=== PATIENT | male | born 1990 | race Caucasian/White ===

== ENCOUNTER 2020-04-26 11:57 | Emergency (ER) | payer MEDICAID ==
[~2020-04-26] VITALS: Ht 170.2 cm; Wt 54.4 kg
[2020-04-26 12:17] VITALS: BP 149/88
[2020-04-26] MEDS ORDERED: FLUORESCEIN SOD 1 MG TEST STRIP LEFTEYE ONE (13:00)
[2020-04-26] MEDS ORDERED: TETRACAINE HCL 0.5% OPTH(EYE) SOLN 4ML LEFTEYE ONE (13:00)
== END 2020-04-26 13:28 | disposition home or self-care (01) ==
LOC: ER 11:57
DX: H10.32 Unspecified acute conjunctivitis, left eye (principal)

== ENCOUNTER 2022-03-31 10:59 | Emergency (ER) | payer MEDICAID ==
[~2022-03-31] VITALS: Ht 170.2 cm; Wt 59.1 kg
[2022-03-31 12:16] VITALS: BP 118/60
[2022-03-31] MEDS ORDERED: HYDR50CA PO (12:37)
== END 2022-03-31 12:47 | disposition home or self-care (01) ==
LOC: EDUNIT# 10:59 → ER 10:59 → EDBD 10:59 → ER 12:47
DX: M25.512 Pain in left shoulder (principal); M62.838 Other muscle spasm; F41.1 Generalized anxiety disorder; X58.XXXA Exposure to other specified factors, initial encounter; Y93.89 Activity, other specified; Y92.89 Other specified places as the place of occurrence of the external cause; Y99.8 Other external cause status

== ENCOUNTER 2022-05-02 11:27 | Emergency (ER) | payer MEDICAID ==
[~2022-05-02] VITALS: Ht 170.2 cm; Wt 62.4 kg
[~2022-05-02 11:27] MED LIST: HYDR50CA PO
[2022-05-02 14:04] LABS: Basophils # (auto) 0.1 10 ^3/uL (0-0.2); Basophils % (auto) 0.8 % (0.0-2.0); Eosinophils # (auto) 0.1 10 ^3/uL (0-0.8); Eosinophils % (auto) 1.6 % (0.0-7.0); Hemoglobin 15.8 g/dL (13.5-17.5); Lymphocytes # (auto) 1.7 10 ^3/uL (0.4-5.4); Lymphocytes % (auto) 26.8 % (10.0-50.0); Mean Corpuscular Hemoglobin 29.8 pg (28.0-32.0); Mean Corpuscular Volume 90.2 fL (80.0-100.0); Monocytes # (auto) 0.5 10 ^3/uL (0-1.3); Neutrophils # (auto) 4.1 10 ^3/uL (1.6-8.6); Neutrophils % (auto) 63.8 % (37.0-80.0); Nucleated Red Blood Cells % 0.1 %; Red Blood Cells 5.33 10^6/uL (4.5-5.90); White Blood Cell 6.5 10^3/uL (4.4-10.8)
[2022-05-02 14:33] LABS: Albumin 4.5 g/dL (3.4-5.0); BUN/Creatinine Ratio 12.7; Bilirubin, Total 0.8 mg/dL (0.2-1.0); Calcium 9.6 mg/dL (8.5-10.1); Potassium 4.3 mmol/L (3.5-5.1); Total Protein 7.3 g/dL (6.4-8.2)
[2022-05-02] MEDS ORDERED: OMEP-434 PO (15:42)
[2022-05-02] MEDS ORDERED: ONDANSETRON ODT 4 MG TAB PO ONE (15:45)
[2022-05-02] MEDS ORDERED: LIDOCAINE VISCOUS 2% 15ML UD PO ONE (15:45)
[2022-05-02] MEDS ORDERED: ALUM & MAG HYDROX-SIMETH LIQ(MAALOX) 30 ML PO ONE (15:45)
[2022-05-02] MEDS ORDERED: FAMOTIDINE 20 MG TAB PO ONE (15:45)
[2022-05-02 18:23] VITALS: BP 135/82
== END 2022-05-02 18:22 | disposition home or self-care (01) ==
LOC: ER 11:27
DX: K21.9 Gastro-esophageal reflux disease without esophagitis (principal)
CPT/HCPCS: 36415; 80053; 83690; 85025; 99284; Q0162

== ENCOUNTER 2022-05-22 18:53 | Emergency (ER) | payer MEDICAID ==
[~2022-05-22] VITALS: Ht 170.2 cm; Wt 61.2 kg
[~2022-05-22 18:53] MED LIST changes: +OMEP-434 PO
[2022-05-23 01:42] VITALS: BP 114/85
== END 2022-05-23 01:43 | disposition home or self-care (01) ==
LOC: ER 18:56
DX: M26.69 Other specified disorders of temporomandibular joint (principal); Z90.49 Acquired absence of other specified parts of digestive tract; Z79.899 Other long term (current) drug therapy
CPT/HCPCS: 70486

== ENCOUNTER 2022-06-10 19:19 | Emergency (ER) | payer MEDICAID ==
[~2022-06-10] VITALS: Ht 170.2 cm; Wt 59.0 kg
[2022-06-10 19:55] LABS: Basophils # (auto) 0.1 10 ^3/uL (0-0.2); Basophils % (auto) 0.8 % (0.0-2.0); Eosinophils # (auto) 0.1 10 ^3/uL (0-0.8); Eosinophils % (auto) 1.2 % (0.0-7.0); Hematocrit 46.5 % (41.0-53.0); Hemoglobin 15.9 g/dL (13.5-17.5); Lymphocytes # (auto) 2.1 10 ^3/uL (0.4-5.4); Lymphocytes % (auto) 22.3 % (10.0-50.0); Mean Corpuscular Hemoglobin 30.8 pg (28.0-32.0); Mean Corpuscular Hgb Conc. 34.2 g/dL (32.0-36.0); Mean Corpuscular Volume 90.1 fL (80.0-100.0); Monocytes # (auto) 0.5 10 ^3/uL (0-1.3); Monocytes % (auto) 5.7 % (0.0-12.0); Neutrophils # (auto) 6.5 10 ^3/uL (1.6-8.6); Nucleated Red Blood Cells % 0.1 %; Red Blood Cells 5.16 10^6/uL (4.5-5.90); Red Cell Distribution Width 12.9 % (11.8-14.3); White Blood Cell 9.3 10^3/uL (4.4-10.8)
[2022-06-10 20:02] LABS: Urine WBC None Seen /hpf (0 - 3)
[2022-06-10 20:13] LABS: Albumin 4.6 g/dL (3.4-5.0); Potassium 3.5 mmol/L (3.5-5.1)
[2022-06-10 20:16] LABS: Bilirubin, Total 0.6 mg/dL (0.2-1.0); Total Protein 7.2 g/dL (6.4-8.2)
[2022-06-10 20:38] LABS: Urine Bacteria NONE SEEN /hpf (None Seen); Urine Blood Negative /uL (Negative); Urine Specific Gravity 1.014 (1.001-1.035)
[2022-06-11 01:56] VITALS: BP 135/88
== END 2022-06-11 01:56 | disposition home or self-care (01) ==
LOC: ER 19:19
DX: R07.89 Other chest pain (principal); F41.9 Anxiety disorder, unspecified; M54.2 Cervicalgia
CPT/HCPCS: 36415; 71046; 80053; 81001; 83880; 84484; 85025; 93005

== ENCOUNTER 2023-05-16 18:12 | Emergency (ER) | payer MEDICAID ==
[~2023-05-16] VITALS: Ht 170.2 cm; Wt 62.3 kg
[2023-05-16] MEDS ORDERED: AMOX875T4 PO (20:27)
[2023-05-16] MEDS ORDERED: IBUP-1456 PO (20:27)
[2023-05-16 21:08] VITALS: BP 148/88; PULSE 109; RESP 18; TEMP 98; O2SAT 97
== END 2023-05-16 21:20 | disposition home or self-care (01) ==
LOC: ER 18:12
DX: J03.90 Acute tonsillitis, unspecified (principal); Z90.49 Acquired absence of other specified parts of digestive tract; Z79.1 Long term (current) use of non-steroidal anti-inflammatories (NSAID); Z79.2 Long term (current) use of antibiotics; Z79.899 Other long term (current) drug therapy